=== PATIENT | male | born 1985 | race African-American/Black ===

== ENCOUNTER 2019-05-13 04:20 | Emergency (ER) | payer MEDICAID, OTHER ==
[~2019-05-13] VITALS: Ht 160 cm; Wt 46.0 kg
[~2019-05-13 04:20] MED LIST: LISI40TA4 PO; REN800 PO
[2019-05-13 10:28] LABS: CHLORIDE 100 mEq/L (98-107)
[2019-05-13 10:33] LABS: HEMATOCRIT. 23.2 % (42.0-52.0); HEMOGLOBIN. 7.9 g/dL (14.0-18.0); MEAN CORPUSCULAR HEMOGLOBIN 29.5 pg (28.0-32.0); MEAN CORPUSCULAR VOLUME 86.5 fL (80.0-94.0); MEAN PLATELET VOLUME 7.1 fl (7.4-10.4); PLATELET 271 x1000/uL (130-400); RED BLOOD CELL COUNT 2.68 mill/uL (4.7-6.1); RED CELL DISTRIBUTION WIDTH 16.7 % (11.6-14.6)
[2019-05-13 12:27] LABS: PLATELET ESTIMATE NORMAL
[2019-05-13 13:27] VITALS: BP 153/77
== END 2019-05-13 13:47 | disposition home or self-care (01) ==
LOC: ER 04:20
DX: I12.0 Hypertensive chronic kidney disease with stage 5 chronic kidney disease or end stage renal disease (principal); N18.6 End stage renal disease; F12.10 Cannabis abuse, uncomplicated; F17.210 Nicotine dependence, cigarettes, uncomplicated; Z99.2 Dependence on renal dialysis; Z71.6 Tobacco abuse counseling
CPT/HCPCS: 36415; 71045; 80053; 85025; 93005; 99284; 99406